=== PATIENT | female | born 1985 | race Caucasian/White ===

== ENCOUNTER 2025-01-02 06:38 | Day surgery (SDC) | payer MEDICAID ==
[2025-01-02] MEDS: TYLENOL EXTRA STRENGTH 500 MG PO ONE (07:27)
[2025-01-02] MEDS: Decadron 4 MG PO ONE (07:27)
[2025-01-02] MEDS: NEURONTIN PO ONE (07:27)
[2025-01-02] MEDS: celeBREX 100 MG PO ONE (07:27)
[2025-01-02 07:33] VITALS: RESP 18
[2025-01-02] MEDS: KEFZOL 1 GM** 3 G in Sodium Chloride 0.9% 50 ML 50 ML IV ONE (07:33)
[2025-01-02 07:43] LABS: Hematocrit 42.5 % (34.1-44.9); Hemoglobin 14.0 g/dL (11.2-15.7); Mean Corpuscular Hemoglobin 31.8 pg (25.6-32.2); Mean Corpuscular Hgb Concent. 32.9 g/dL (32.2-35.5); Platelet Count 223 x10^3/uL (182-369); Red Blood Count 4.40 x10^6/uL (3.93-5.22); White Blood Count 7.1 x10^3/uL (3.98-10.04)
[2025-01-02 07:56] LABS: HCG SERUM TEST NEGATIVE (NEGATIVE)
[2025-01-02 07:57] LABS: Calcium 8.6 mg/dL (8.4-10.2); Carbon Dioxide 27.0 mmol/L (22-30); Creatinine 1 0.69 mg/dL (0.52-1.04); EST GLOMERULAR FILTRATION RATE 113.1 ML/MIN; Glucose 127.0 mg/dL (74-106); Potassium 3.8 mmol/L (3.5-5.1); SGOT/AST 22.0 U/L (14-36); SGPT/ALT 26.0 U/L (0-35); Total Protein 6.4 g/dL (6.3-8.2)
[2025-01-02] MEDS ORDERED: Zofran 4 MG/2 ML VIAL ONE (08:42)
[2025-01-02] MEDS ORDERED: Xylocaine-Mpf 2% 5 Ml Vial ONE (08:42)
[2025-01-02] MEDS ORDERED: Versed 2 MG/2 ML Injection ONE (08:42)
[2025-01-02] MEDS ORDERED: propofoL IV ONE (08:42)
[2025-01-02] MEDS ORDERED: EXPAREL 133 MG/10 ML VIAL IJ ONE (08:42)
[2025-01-02] MEDS ORDERED: SUBLIMAZE 100 MCG/2 ML ONE (08:42)
[2025-01-02] MEDS ORDERED: Marcaine Mpf 0.5% Vial 30 Ml ONE (08:42)
[2025-01-02] MEDS ORDERED: Lactated Ringers 1,000 ML IV ONE (10:36)
[2025-01-02 11:56] VITALS: PULSE 53; O2SAT 97
[2025-01-02 12:06] VITALS: BP 134/70; TEMP 96.4
--- NOTE | 2025-01-02 12:13 | XRAY ---
Indication: ORIF right 5th metatarsal fracture. Calcaneal radiograph. Intraoperative fluoroscopy provided for 2 minutes 16 seconds. 13 digital spot images submitted for interpretation ultimately demonstrates single orthopedic screw fixating fracture proximal shaft 5th metatarsal in good apposition/alignment. Single lateral view calcaneus demonstrates tiny posterior spur. Correlate with intraoperative findings/report.
--- NOTE | 2025-01-02 14:49 | XRAY ---
Two minutes and 16 seconds of fluoroscopy was used in surgery for an ORIF right 5th metatarsal fracture. Calcaneal radiograph.
--- NOTE | 2025-01-04 11:54 | OP ---
SURGERY DATE/TIME: 01/02/2025 5125-0156 PREOPERATIVE DIAGNOSES: 1) Right fifth metatarsal fracture. 2) Right foot pain. 3) Delayed union, fifth metatarsal fracture. POSTOPERATIVE DIAGNOSES: 1) Right fifth metatarsal fracture. 2) Right foot pain. 3) Delayed union, fifth metatarsal fracture. PROCEDURES: 1) Calcaneal autograft, right calcaneus. 2) Open reduction and internal fixation of right fifth metatarsal fracture. SURGEON: Simon Walsh DPM FUEL CELL REPAIRER: PRESTON Richard ANESTHESIA: General. HEMOSTASIS: Pressure dressing. ESTIMATED BLOOD LOSS: Approximately 5 mL. INJECTABLES: Popliteal and saphenous block with Exparel. See anesthesia report for details. INDICATIONS: The patient is a very pleasant 39-year-old female who presented to our service approximately 5 weeks ago with a metatarsal fracture. Given that this was diaphyseal in nature and outside of the watershed area, my nurse practitioner did not think this was a surgical issue and did conservatively manage this. The patient presented approximately 4 weeks after that appointment with a significant amount of pain and tenderness, pain with eversion against resistance, as well as difficulty with ambulation. The patient was developing some indications of a nonunion at this site. The patient had been advised to reduce her cigarette smoking and have better control over her hyperglycemia. From that standpoint, given that she has had pain for over 5 weeks with minimal improvement, we have decided to go forward with an open reduction and internal fixation of the fifth metatarsal with the option to proceed with a calcaneal autograft if deemed necessary. The patient has been made aware of all risks, complications, and benefits of surgical intervention including, but not limited to, infection, hematoma, seroma, possibility of delayed wound healing, nonwound healing, and possible need for further surgical intervention at a later date. No guarantees have been provided as to the outcome. Plenty of time was allowed for the patient to ask questions, which were answered to her apparent satisfaction. It was at this time we decided to proceed. DESCRIPTION OF PROCEDURE AND FINDINGS: The patient was brought into the PACU prior to the procedure and provided a popliteal and saphenous block to the right lower extremity. The patient was brought into the operating room, placed on the operating room table in the supine position. General anesthesia was administered, and the patient was adequately sedated. The right lower extremity was then prepped and draped in the typical sterile fashion and lowered onto the surgical field. At this time, a linear incision was made over the fracture site where the fracture site was quickly encountered. This was checked for any healthy bleeding of which minimal was found initially. The scar tissue was cleaned out from that site, and once the bone was resected at the fracture site, there was some healthy bleeding seen at the edge. Approximately 4 mm of resection was performed in total before healthy bleeding was achieved. It was the decision at this point to go forward with the calcaneal autograft, where, under direct fluoroscopic guidance, a stab incision was made at the lateral wall of the calcaneus in the safe quadrant in the posterior plantar quadrant. A stab incision was made. This was deepened to the level of the calcaneus where 18 mm drill was utilized to fenestrate through the lateral wall of the calcaneus. Curettes were then used to remove bone from the calcaneus. Approximately 0.25 mL was removed, which was then subsequently packed into the deficit. Once this was performed, a [facility] screw, 4.5 x 50 was then introduced and gaining excellent compression across the fracture fragment with the threads crossing past the fracture line, gaining excellent compression to the site. Following this, copious amounts of sterile saline were utilized to flush the surgical site. A dressing consisting of Betadine, Adaptic, 4 x 4, Kerlix, ABD and a well-padded posterior splint was applied to the patient's right lower extremity with the foot orthogonal relative to the longitudinal axis of the leg. The patient was then reversed from anesthesia and returned to the postoperative anesthesia care unit with vital signs stable and vascular status intact. The patient handled the anesthesia as well as the procedure without significant complication. Postoperative orders as indicated in the patient's discharge chart.
== END 2025-01-02 12:15 | disposition home or self-care (01) ==
LOC: SDC 06:38
PROVIDERS: ATTEND Podiatrist Foot & Ankle Surgery
DX: S92.351A Displaced fracture of fifth metatarsal bone, right foot, initial encounter for closed fracture (principal); M79.671 Pain in right foot
CPT/HCPCS: 20902; 28485; 36415; 73630; 76000; 80053; 84703; 85027; 93005; C1713